=== PATIENT | male | born 1960 | race Caucasian/White ===

== ENCOUNTER 2020-10-31 12:39 | Emergency (ER) | payer MEDICAID, SELFPAY ==
[2020-10-31 13:42] VITALS: BP 135/70; PULSE 110; RESP 18; TEMP 37.3; O2SAT 95; BMI 34.9
[2020-10-31 13:47] VITALS: PULSE 105; O2SAT 95
--- NOTE | 2020-10-31 14:55 | ED_ITS ---
HPI - General Adult General Chief complaint: Upper Respiratory Symptoms Stated complaint: back pain, fever Time Seen by Provider: 10/31/20 14:00 Source: patient Mode of arrival: ambulatory Limitations: no limitations History of Present Illness HPI narrative: Primarily Romansh-speaking 6-year-old male with history of non insulin-dependent diabetes mellitus CV was this a.m. within normal limits who presents today with complaint of states he has had 2 days of upper respiratory symptoms with rhinorrhea and myalgias here for COVID testing also reports that he has history of lower back pain and unsure what he did having left lower back pain similar to previous events when he pulled a muscle. Denies any fever or chills. No abdominal pain. No nausea vomiting diarrhea. No symptoms. No history of IVDA use. Onset (ago): day(s) Radiation: non-radiation Severity: mild Pain Consistency: intermittent Relieving factors: none and immobilization Exacerbating factors: movement Associated symptoms: denies other symptoms Treatments prior to arrival: none Related Data Previous Rx's Medication Instructions Recorded cyclobenzaprine 5 mg PO TID PRN #20 tab 10/31/20 ibuprofen 800 mg PO Q8H PRN #30 tab 10/31/20 Allergies Allergy/AdvReac Type Severity Reaction Status Date / Time No Known Allergies Allergy Verified 10/31/20 13:42 Review of Systems Review of Systems: Constitutional: No Weight loss, No Fever, No Chills, No Night Sweats, No Fatigue, No Malaise ENT/Mouth: No Hearing loss, No Ear Pain, + Nasal Congestion, No Sinus Pain, No Hoarseness, No sore throat, No Rhinorrhea, No Swallowing Difficulty Eyes: No Eye Pain, No Swelling, No Redness, No Foreign Body, No Discharge, No Vision Changes Cardiovascular: No Chest Pain, No SOB, No Dyspnea on Exertion, No Orthopnea, No Edema, No Palpitations Respiratory: No Cough, No Sputum, No Wheezing, No Smoke Exposure, No Dyspnea Gastrointestinal: No Nausea, No Vomiting, No Diarrhea, No Constipation, No abdominal Pain, No Hematochezia, No Melena Genitourinary: no irregular bleeding, No Dysuria, No Urinary Frequency, No Hematuria, No Urinary Incontinence, No Urgency, No Flank Pain, No Urinary Flow Changes, No Hesitancy Musculoskeletal: No joint pain, + Myalgias, No Joint Swelling Skin: No Skin Lesions, No rash Neuro: No Weakness, No Numbness, No Paresthesias, No Loss of Consciousness, No Dizziness, No Headache Psych: No SI/HI/AH/VH No Social Issues, Heme/Lymph: No Bruising, No Bleeding,No Lymphadenopathy Endocrine: No Polyuria, No Polydipsia, No Temperature Intolerance Yes all other systems are reviewed and are negative [facility] Past Medical History Medical History (Updated 10/31/20 @ 16:16 by Vishnu Alfaro NP) Diabetes Healthy adult Social History Social History Advance Directives: No Advance Directives Information Provided: Yes Physical Exam Vital Signs: Vital Signs: Last Vital Signs Temp 99.2 F 10/31/20 13:42 Pulse 105 H 10/31/20 13:47 Resp 18 10/31/20 13:42 BP 135/70 10/31/20 13:42 Pulse Ox 95 10/31/20 13:47 Body Mass Index 34.9 Reviewed Const: General: cooperative and healthy appearing; No acute distress or intoxicated appearing Nutritional Appearance: average body habitus Orientation/consciousness: patient oriented x3 HENMT: Head: Yes normal to inspection Ears: hearing grossly normal bilater ally Eyes: General: appearance normal, both eyes and all related structures Visual Beth: normal visual beth by confrontation Neck: Neck: Yes normal visual inspection, No positive Brudzinski's sign, No positive Kernig's sign and No tender Thyroid: Thyroid normal Chest: Chest palpation & inspection: normal inspection of the chest Resp: Effort & Inspection: normal respiratory effort Cardio: Jugular venous distension: no JVD Rhythm: regular rhythm Heart sounds: S1 normal heart sound present and S2 normal heart sound present GI: Inspection: Yes normal to inspection Percussion: Yes normal to percussion Auscultation: normal bowel sounds : General: Yes no CVA tenderness Back/Spine/Pelvis: Back: no CVA tenderness Thoracic/Lumbar Spine: paraspinal muscle tenderness (No midline separation, no step-off. No rash.) on the left Skin: General skin exam: no rashes or lesions noted Neuro: General: patient oriented x3 Extrem: General: Yes normal to inspection Course Course Course Narrative: Rhinorrhea/upper respiratory symptoms with myalgias type pains also exacerbation of lumbar paraspinal muscle strain consistent with previous episodes. Overall nontoxic appearing. COVID/RSV/flu done will discharge home and call him with results as he is requesting to be discharged does not want to wait here for results. Hemodynamically stable. No low back pain red flags. Reevaluation(s) Reevaluation #1: I call patient with the COVID-19 results. He has positive. Will follow strict isolation/this is an guidelines return follow-up instructions provided. Medical Decision Making Lab Data Labs: Lab Results 10/31/20 Range/Units 14:42 Coronavirus (PCR) POSITIVE A (Negative) Influenza Type A (PCR) NEGATIVE (Negative) Influenza Type B (PCR) NEGATIVE (Negative) RSV RNA Qual (PCR) NEGATIVE (Negative) Discharge Plan Discharge Clinical Impression: COVID-19, Acute lumbar myofascial strain Patient Disposition: Home, Self-Care Instructions: Low Back Strain (ED), COVID-19 (Coronavirus Disease 2019) (ED) Additional Instructions: Based on your symptoms and history we have sent a COVID-19. Although your RESULT IS PENDING at this time. RESULTS should return within 72 hours. At this time you will be contacted with either NEGATIVE OR POSITIVE results. -Please wait until we contact you for your results. At this time you will be okay for discharge. Please plan for self quarantine for up to 14 days. Do not expose yourself to others. You may not go to work. If testing does come back negative you may return to activities as long as you are no longer having any symptoms for at least 3 days. Please continue to follow cold instructions and wash your hands frequently. You may take Tylenol as directed on the bottle for pain or fever. Patient seen in the emergency department and should be excused from work until negative test results AND until 72 hours without any symptoms AND at least 10 days have passed since symptoms first appeared or since last exposure to COVID- 19 positive patient CDC Guidelines for home isolation: - Stay away from others - WEAR A MASK if you are sick AND STAY HOME - Cover your mouth and nose with a tissue when you cough or sneeze. Dispose of tissues in a lined trash can and wash your hands immediately with soap and water for at least 20 seconds. If soap and water are not available, clean hands with alcohol-based hand electrical development engineer that contains at least 60% alcohol. - Clean your hands often with soap and water for at least 20 seconds - Avoid touching your eyes, nose and mouth with unwashed hands - Do not share dishes, drinking glasses, cups, eating utensils, towels, or bedding with other people in your home. After using these items, wash them thoroughly with soap and water or put in the conveyor tender. - Clean high-touch surfaces in your isolation area ( sick room and bathroom) every day; let a caregiver clean and disinfect high-touch surfaces in other areas of the home. Clean the area or item with soap and water or another detergent if it is dirty. Then, use a household disinfectant. - Limit contact with pets and animals: If you must care for a pet, wash your hands before and after interacting with them Prescriptions: New cyclobenzaprine 10 mg tablet 5 mg PO TID PRN (Reason: muscle spasm) Qty: 20 RF: 0 ibuprofen 800 mg tablet 800 mg PO Q8H PRN (Reason: pain) Qty: 30 RF: 0 Referrals: Zarina Cox NP [Primary Care Provider] - 1 week (PHONE VISIT ) Interventions: ED Discharge Assessment Last Done: 10/31/20 15:31 Discharge Date/Time: 10/31/20 15:34
[2020-10-31 15:42] LABS: Influenza A PCR NEGATIVE (Negative); Influenza B PCR NEGATIVE (Negative); Resp Syncy Virus RNA Qual PCR NEGATIVE (Negative)
[2020-10-31 15:50] LABS: SARS COV2 PCR INHOUSE POSITIVE (Negative)
== END 2020-10-31 15:34 | disposition home or self-care (01) ==
PROVIDERS: Nurse Practitioner Primary Care; Emergency Provider Emergency Medicine; PCP Nurse Practitioner Family
DX: U07.1 COVID-19 (principal); S39.012A Strain of muscle, fascia and tendon of lower back, initial encounter; X58.XXXA Exposure to other specified factors, initial encounter; E11.9 Type 2 diabetes mellitus without complications; Y93.9 Activity, unspecified; Y92.019 Unspecified place in single-family (private) house as the place of occurrence of the external cause; Y99.9 Unspecified external cause status
CPT/HCPCS: 0241U; 99283

== ENCOUNTER 2023-07-27 09:48 | Outpatient (REF) | payer MEDICAID, SELFPAY ==
[2023-07-27 12:12] LABS: Creatinine Urine 145.21 mg/dL; Microalbum/Creatinine Ratio Ur 6.1 ug/mg cr (<30)
== END 2023-07-27 09:49 | disposition home or self-care (01) ==
LOC: HO.HHCLNP 09:48
PROVIDERS: Visit Provider Registered Nurse
DX: E11.9 Type 2 diabetes mellitus without complications (principal)
CPT/HCPCS: 82043; 82570

== ENCOUNTER 2024-11-05 08:03 | Outpatient (REF) | payer MEDICAID, SELFPAY ==
[2024-11-05 11:57] LABS: Alanine Aminotransferase 26 U/L (0-40); Albumin Level 4.3 g/dL (3.5-5.0); Anion Gap 10 (12-20); Aspartate Amino Transferase 25 U/L (5-37); Bilirubin Total 0.6 mg/dL (0.0-1.0); Blood Urea Nitrogen 15 mg/dL (9-16); Calcium 9.2 mg/dL (8.4-10.2); Carbon Dioxide 28 mmol/L (22-29); Chloride 106 mmol/L (96-108); Cholesterol 107 mg/dL (<200); Estimated Glomerular Filt Rate > 60; Glucose Random 124 mg/dL (60-115); HDL Cholesterol 40 mg/dL (>40); LDL Cholesterol Calculated 55 mg/dL (<100); Potassium 4.4 mmol/L (3.3-5.1); Sodium 140 mmol/L (135-145); Total Protein 7.2 g/dL (6.5-8.0); Triglycerides 63 mg/dL (<150)
[2024-11-05 12:00] LABS: Prostate Specific Antigen 0.96 ng/mL (<0.05-4.0)
[2024-11-05 12:24] LABS: Alkaline Phosphatase 63 U/L (39-117)
[2024-11-05 12:48] LABS: Creatinine Urine 84.07 mg/dL; Microalbumin Urine < 5.0 mg/L
== END 2024-11-05 08:04 | disposition home or self-care (01) ==
LOC: HO.HHCL 08:03
PROVIDERS: Visit Provider Registered Nurse
DX: E11.9 Type 2 diabetes mellitus without complications (principal); C02.9 Malignant neoplasm of tongue, unspecified
CPT/HCPCS: 36415; 80053; 80061; 82043; 82570; 84153